=== PATIENT | female | born 1930 | race Asian ===

== ENCOUNTER 2018-07-15 02:06 | Emergency (ER) | payer MEDICARE, OTHER ==
[~2018-07-15] VITALS: Ht 157.5 cm; Wt 83.9 kg
--- NOTE | 2018-07-15 02:15 | NUR ---
ED Nurse Note: RECIEVED PT FROM HOME, HERE WITH C/O URINARY RETENTION AND ABDOMINAL PAIN FROM IT, PT HAS CYSTOSCOPY PROCEDURE DONE TODAY AT [facility] FOR POLYP REMOVAL AND STATES AFTER RETURNING HOME CAN NOT URINATE, PT IS CRYING AND MOANING IN PAIN, MILD LOWER ABD DISTENTION NOTED, PT DENIES CP, SOB, OR ANY OTHER COMPLAINTS OR DISCOMFORTS.
--- NOTE | 2018-07-15 02:40 | NUR ---
ED Nurse Note: CASANOVA CATH PLACED, NO BLEEDING OR RESISTANCE NOTED, ABOUT 800ML OF CLEAR, COLRED URINE RETURNED AND PT WITH IMMEDIATE RELIEF, MD AWARE, PT TOLERATED VERY WELL, PAIN AT 0/10, URINE SAMPLE COLLECTED AND SENT ORDERED, WILL CONTINUE TO CLOSELY MONITOR.
[2018-07-15] MEDS ORDERED: NITROFURANTOIN100 M2 ORAL (03:40)
[2018-07-15 03:50] LABS: BILIRUBIN, URINE NEGATIVE (NEGATIVE); COLOR,URINE PALE YELLOW; GLUCOSE, URINE (UA) 2+ (NEGATIVE); KETONES,URINE NEGATIVE (NEGATIVE); LEUKOCYTE ESTERASE ,URINE 1+ (NEGATIVE); NITRITE,URINE NEGATIVE (NEGATIVE); PH,URINE 6 (4.5-8.0); PROTEIN,URINE 2+ (NEGATIVE); UROBILINOGEN,URINE NORMAL MG/DL (0.0-1.0)
[2018-07-15 04:00] VITALS: BP 151/82
--- NOTE | 2018-07-15 04:05 | NUR ---
ED Nurse Note: PT BEING D/C TO HOME, AWAKE, ALERT AND ORIENTED X 4, PT REMAINS WITH CATH IN PLACE, LEG BAG APPLIED, PT AND FRIEND SHOWN HOW TO EMPTY AND ADJUST BAG, BOTH PARTIES GIVEN INSTRUCTIONS ON F/U THIS AM WITH UROLOGIST AT [facility] AND PROPER MEDICATION ADMINISTRATION FOR MED GIVEN, ALSO GIVEN AFTER CARE INSTRUCTIONS, PT IS AMBULATORY, ASSISTING PT WITH TRANSPORTATION TO HOME VIA [facility].
[2018-07-15 04:06] LABS: APPEARANCE,URINE SLIGHTLY CLOUDY
[2018-07-15 04:25] VITALS: BP 151/82
--- NOTE | 2018-07-15 06:21 | Emergency Room Report ---
History of Present Illness General Chief Complaint: Female Urogenital Problems Source: Patient Present Illness HPI Patient is an 88-year-old female presented after increased difficulty with urination. Patient had recent cystoscopy and polypectomy performed at [facility]. Patient had been unable to void since after the procedure. She denies any fever. She reports of increased lower abdominal discomfort. Patient had not been having any bleeding. She reports having moderate pain. Patient was brought in by EMS Allergies: Coded Allergies: No Known Allergies (Unverified , 07/15/18) Patient History Past Medical History: see triage record Last Menstrual Period: n/a Reviewed Nursing Documentation: PMH: Agreed; PSxH: Agreed Nursing Documentation-PMH Past Medical History: No Stated History Review of Systems All Other Systems: negative except mentioned in HPI Physical Exam Vital Signs Date Time Temp Pulse Resp B/P (MAP) Pulse Ox O2 Delivery O2 Flow Rate FiO2 07/15/18 01:54 97.9 18 18 168/86 98 General Appearance: well appearing, no apparent distress, alert, GCS 15, Chronically Ill Head: normocephalic, atraumatic ENT: hearing grossly normal, normal voice Neck: full range of motion, supple Respiratory: lungs clear, normal breath sounds, no respiratory distress, speaking full sentences Cardiovascular #1: normal inspection, regular rate, rhythm, no edema Gastrointestinal: normal inspection, other - suprapubic fullness Musculoskeletal: normal inspection Neurologic: normal inspection, alert, oriented x3, normal gait Psychiatric: mood/affect normal Skin: no rash Medical Decision Making Diagnostic Impression: Primary Impression: Acute retention of urine ER Course Patient presented for increased urinary retention. Differential diagnosis include was not related to urethral obstruction, medication reaction, cauda equina syndrome among others. Patient was noted to have appear to be urinary retention. Gipson catheter was placed and patient had large amount of urine output. Patient was noted to have subsequent improvement in her symptoms. Urinalysis showed evidence of hematuria consistent with patient's recent procedure. Patient given prescription for Macrobid. Patient was advised to follow-up with urology for reexamination and Gipson catheter removal. Labs Test 07/15/18 02:35 Urine Color Pale yellow Urine Appearance Slightly cloudy Urine pH 6 (4.5-8.0) Urine Specific [place] 1.010 (1.005-1.035) Urine Protein 2+ (NEGATIVE) Urine Glucose (UA) 2+ (NEGATIVE) Urine Ketones Negative (NEGATIVE) Urine Blood 5+ (NEGATIVE) Urine Nitrite Negative (NEGATIVE) Urine Bilirubin Negative (NEGATIVE) Urine Urobilinogen Normal MG/DL (0.0-1.0) Urine Leukocyte Esterase 1+ (NEGATIVE) Urine RBC Tntc /HPF (0 - 2) Urine WBC 10-15 /HPF (0 - 2) Urine Squamous Epithelial Cells Few /LPF (NONE/OCC) Urine Bacteria Few /HPF (NONE) Last Vital Signs Date Time Temp Pulse Resp B/P (MAP) Pulse Ox O2 Delivery O2 Flow Rate FiO2 07/15/18 04:25 98.4 83 16 151/82 98 Status: improved Disposition: HOME, SELF-CARE Condition: Stable Scripts Nitrofurantoin Monohyd/M-Cryst* (MACROBID 100 MG*) 100 Mg Capsule 100 MG ORAL EVERY 12 HOURS, #20 CAP Prov: Antonio Parrish MD 07/15/18 Referrals: NOT CHOSEN IPA/,REFERRING (PCP) Patient Instructions: Acute Urinary Retention, Female Antonio Parrish MD Jul 15, 2018 06:21
== END 2018-07-15 04:25 | disposition home or self-care (01) ==
LOC: EDBD 02:06 → EMR 02:42
DX: R33.9 Retention of urine, unspecified (principal)
CPT/HCPCS: 51702; 81003; 87086; 99284